=== PATIENT | female | born 1990 | race Caucasian/White ===

== ENCOUNTER 2024-11-30 14:26 | Emergency (ER) | payer SELFPAY ==
[2024-11-30 14:28] VITALS: BP 101/58
--- NOTE | 2024-11-30 14:55 | ED.GENMED ---
History of Present Illness
General
Chief Complaint: Allergic Reaction
Source: patient
Time Seen by Provider: 11/30/24 14:47
History of Present Illness
History of Present Illness:
34-year-old female presents to the emergency room complaining of an allergic reaction. Patient states that she grapes and about an hour later developed an itchy rash across her body as well as a discomfort in her throat, nausea and 1 episode of
vomiting. Patient has not had an allergic reaction to food in the past. She did take a Claritin prior to arrival.
Past History
Past History
ED Past Medical History: None
ED Past Surgical History: None
Phy Exam
Physical Exam
Physical Exam:
General: Awake, Alert, Oriented X3. No acute distress.
Vitals: unremarkable
Head: Atraumatic
Eyes: Pupils equal, EOMI
Throat: Airway intact, no exudates, no angioedema
Neck: Trachea midline
Lungs: Clear and equal b/l
Heart: Regular rate, no murmurs
Abd: Soft, Nontender, No pulsatile mass
Neuro: Nonfocal
Skin: Warm, dry, diffuse urticaria and erythema
Extremities: pulses equal b/l, no edema
Course
Orders/Labs/Results
Orders:
Orders
11/30/24 14:55
Diphenhydramine [Benadryl] 50 mg IV NOW STA
Famotidine [Pepcid] 20 mg IV NOW STA
Prednisone [Deltasone] 50 mg PO NOW STA
Vital Signs
Initial and Last Documented VS:
Initial Vital Signs
Temp Pulse Resp BP Pulse Ox
98.6 F 77 18 101/58 98
11/30/24 14:28 11/30/24 14:28 11/30/24 14:28 11/30/24 14:28 11/30/24 14:28
Last Documented Vital Signs
Temp Pulse Resp BP Pulse Ox
98.6 F 79 16 101/58 100
11/30/24 14:28 11/30/24 15:21 11/30/24 15:21 11/30/24 14:28 11/30/24 15:21
MDM/Problems Addressed
Differential Diagnosis Includes:
Allergic reaction
MDM/Problems Addressed:
Patient presents with hives and throat discomfort after eating grapes. She feels much better after treatment here. Patient stable for discharge home. Prescription for EpiPen and steroids sent to the pharmacy.
*Critical Care Note
Total Time (30-74mins, 75-104mins- exclusive of procedures): Not Applicable
ED Attending Note
-
Portions of this chart may have been created with voice recognition software.� Occasional wrong word or��sound alike� substitutions may have occurred due to the inherent limitations of voice recognition software.
Discharge Plan
Departure
Patient Disposition: Home (Routine Discharge)
Date of Disposition: 11/30/24
Time of Disposition: 15:59
Patient with high blood pressure during this ER visit?: No
Condition: Good
Discharge Problem:
Allergic reaction
Instructions: Allergic reaction - ED discharge instructions
Prescriptions:
New
epinephrine [EpiPen 2-Jj] 0.3 mg/0.3 mL auto-injector
0.3 mg IM Q5-15M PRN (Reason: anaphylaxis) Qty: 2 0RF
prednisone 20 mg tablet
40 mg PO DAILY Qty: 8 0RF
No Action
hydrocodone-acetaminophen [Vicodin] 1 EACH tablet
1 ea PO Q6HPRN PRN (Reason: severe pain ) Qty: 12 0RF
hydrocodone-acetaminophen 1 TABLET tablet
1 tab PO Q4HPRN PRN (Reason: pain) Qty: 10 0RF
Referrals:
Nikole Baker MD [Consulting Staff] -
NONE,* [Family Provider] -
Interventions
Interventions:
*Risk Screen - Suicide Last Done: 11/30/24 14:28
*General Assessment Last Done: 11/30/24 14:28
*Neglect/Abuse Screening Last Done: 11/30/24 14:28
*Nursing Disposition Last Done: 11/30/24 16:22
ED- Cardiac Assessment Last Done: 11/30/24 15:00
ED- Pulmonary Assessment Last Done: 11/30/24 15:00
ED-Skin Assessment Last Done: 11/30/24 15:00
Discharge Date and Time
Discharge Date/Time: 11/30/24 16:22
Print Language: ITALIAN
[2024-11-30] MEDS: DELTASONE 50 MG PO (15:05)
[2024-11-30] MEDS: BENADRYL 50 MG IV (15:05)
[2024-11-30] MEDS: PEPCID 20 MG IV (15:05)
== END 2024-11-30 16:22 | disposition home or self-care (01) ==
LOC: EMR 14:26
PROVIDERS: EMERGENCY PHYSICIAN Emergency Medicine
DX: T78.1XXA Other adverse food reactions, not elsewhere classified, initial encounter (principal); L50.9 Urticaria, unspecified; X58.XXXA Exposure to other specified factors, initial encounter
CPT/HCPCS: 96374; 96375; 99284

== ENCOUNTER 2025-08-30 07:22 | Emergency (ER) | payer OTHER, SELFPAY ==
[2025-08-30 07:22] VITALS: BP 141/90
[2025-08-30 08:19] VITALS: BMI 21.7
[2025-08-30 08:25] VITALS: BP 109/64
[2025-08-30] MEDS: TYLENOL 650 MG PO (09:44)
--- NOTE | 2025-08-30 09:53 | ED.GENMED ---
History of Present Illness
General
Chief Complaint: Crisis Evaluation
Source: patient
Exam Limitations: none
Time Seen by Provider: 08/30/25 08:05
Nursing documentation reviewed up to this point in time: agreed with
History of Present Illness
History of Present Illness:
Patient with history of depression, currently untreated, presents to ED secondary to worsening depression over the past 2 months, especially after break-up with her significant other. Patient reports decreased appetite as well as difficulty
sleeping at nighttime. Patient has had suicidal thoughts, but does not want to act upon them. Patient previously has had suicidal attempts. Denies recent illness. Denies fever or chills. Denies coughing. Denies vomiting or diarrhea. Patient
reports mild headache. Denies rash. Denies neck pain. Denies dizziness. Denies blurry vision. Denies loss of sensation or weakness. Patient currently works at [employer] and has attempted to reach out to therapy available through work, without
success.
Past History
Past History
ED Past Medical History: None
ED Past Surgical History: None
Review of Systems
Review of Systems
Allergies reviewed?: Yes
All Other Systems: ROS reviewed and negative except as documented in HPI and ROS
Constitutional: Reports no symptoms; Denies fever
EENT: Reports no symptoms
Respiratory: Reports no symptoms
Cardiac: Reports no symptoms
ABD/GI: Reports no symptoms
Musculoskeletal: Reports no symptoms
Skin: Reports no symptoms
Neurological: Reports no symptoms
Psychiatric: Reports depression
Phy Exam
Physical Exam
Physical Exam:
Physical Exam
General: mild distress, not acutely ill. afebrile
Head: nc/at. eomi
Neck: supple. no meningeal signs.
Heart: s1/s2 regular rate and rhythm
Lungs: no acute respiratory distress. clear bilaterally
Abdomen: normal bowel sounds. not tender.
Neuro: alert and oriented x 3. no focal neurological deficits
Skin: no rash
Psychiatric: well kept. interactive and cooperative but tearful
Extremities: no edema. no calf tenderness.
Course
Orders/Labs/Results
Orders:
Orders
08/30/25 07:26
Crisis Consult Urgent
Reason for Consult: depression
08/30/25 09:11
PSYCHIATRY CONSULT Urgent
Consulting Provider: Lalo Dorman
Was physician already notified: Yes
Reason for consult: depression
Test Result ONCE
08/30/25 09:12
0.9% Sodium Chloride 500 ml [Nss] 500 ml IV BOLUS
08/30/25 09:31
Acetaminophen [Tylenol] 650 mg PO NOW STA
08/30/25 09:11
08/30/25 09:11
Vital Signs
Initial and Last Documented VS:
Initial Vital Signs
Temp Pulse Resp BP Pulse Ox
98.4 F 105 20 141/90 100
08/30/25 07:22 08/30/25 07:22 08/30/25 07:22 08/30/25 07:22 08/30/25 07:22
Last Documented Vital Signs
Temp Pulse Resp BP Pulse Ox
98.4 F 90 18 109/64 97
08/30/25 07:22 08/30/25 08:25 08/30/25 08:25 08/30/25 08:25 08/30/25 09:57
MDM/Problems Addressed
MDM/Problems Addressed:
Patient evaluated by psychiatrist, Dr. Dorman. Patient is to be discharged home at this time, where she will follow-up with [facility] outpatient therapy. Patient already has an appointment for her initial consultation tomorrow afternoon. Patient feels
comfortable going home at this time. Discussed blood work in ED, which patient deferred. Patient without any suicidal or homicidal ideation, at time of discharge.
*Pulse Oximetry
SaO2: 97
Oxygen Mode of Delivery: Room air
Patient hypoxic: no
*Critical Care Note
Total Time (30-74mins, 75-104mins- exclusive of procedures): Not Applicable
ED Attending Note
-
Portions of this chart may have been created with voice recognition software.� Occasional wrong word or��sound alike� substitutions may have occurred due to the inherent limitations of voice recognition software.
Discharge Plan
Departure
Patient Disposition: Home (Routine Discharge)
Date of Disposition: 08/30/25
Time of Disposition: 12:04
Patient with high blood pressure during this ER visit?: Yes
Condition: Fair
Discharge Problem:
Depression
Instructions: Depression, Adult (DC)
Prescriptions:
No Action
hydrocodone-acetaminophen [Vicodin] 1 EACH tablet
1 ea PO Q6HPRN PRN (Reason: severe pain ) Qty: 12 0RF
hydrocodone-acetaminophen 1 TABLET tablet
1 tab PO Q4HPRN PRN (Reason: pain) Qty: 10 0RF
epinephrine [EpiPen 2-Jj] 0.3 mg/0.3 mL auto-injector
0.3 mg IM Q5-15M PRN (Reason: anaphylaxis) Qty: 2 0RF
prednisone 20 mg tablet
40 mg PO DAILY Qty: 8 0RF
Referrals:
NONE,* [Family Provider, Internal Medicine]
Stand Alone Forms: Return to Work
Activity Restrictions/Additional Instructions:
As discussed, please follow-up with outpatient counseling therapy session tomorrow afternoon, as already scheduled, for further evaluation and treatment.
Interventions
Interventions:
*Risk Screen - Suicide Last Done: 08/30/25 07:22
*General Assessment Last Done: 08/30/25 07:22
*Neglect/Abuse Screening Last Done: 08/30/25 08:19
*ED- Fall Risk Assessment Last Done: 08/30/25 08:19
*ED COVID-19 Vaccine History Last Done: 08/30/25 08:19
*ED Influenza Vaccine History Last Done: 08/30/25 08:19
*Nursing Disposition Last Done: 08/30/25 12:19
ED-Psychological Assessment Last Done: 08/30/25 08:19
Discharge Date and Time
Discharge Date/Time: 08/30/25 12:20
Print Language: HEBREW
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
== END 2025-08-30 12:20 | disposition home or self-care (01) ==
LOC: EMR 07:22
PROVIDERS: CONSULT PHYSICIAN Psychiatry & Neurology Psychiatry; EMERGENCY PHYSICIAN Emergency Medicine
DX: F32.1 Major depressive disorder, single episode, moderate (principal); R03.0 Elevated blood-pressure reading, without diagnosis of hypertension; F17.210 Nicotine dependence, cigarettes, uncomplicated; Z63.5 Disruption of family by separation and divorce; Z91.51 Personal history of suicidal behavior; Z81.8 Family history of other mental and behavioral disorders
CPT/HCPCS: 99283